=== PATIENT | female | born 1980 ===

== ENCOUNTER 2017-06-09 07:10 | Emergency (ER) | payer OTHER ==
[2017-06-09 07:18] VITALS: BMI 41.9
[2017-06-09 07:21] VITALS: BP 91/60; PULSE 68; RESP 16; TEMP 97.6; O2SAT 98
--- NOTE | 2017-06-09 09:10 | CT ---
PROCEDURE: CT Chest without contrast HISTORY: fall, L chest trauma, SOB COMPARISON: None. TECHNIQUE: Contiguous axial images were obtained through the chest without intravenous contrast enhancement. Sagittal and coronal reconstructions were performed. Radiation dose (DLP): 619.8 mGy-cm. This CT exam was performed using one or more of the following dose reduction techniques: Automated exposure control, adjustment of the mA and/or kV according to patient size, and/or use of iterative reconstruction technique. FINDINGS: LUNGS: Clear lungs. Visualized airway clear. MEDIASTINUM: Unremarkable thoracic aorta. No aneurysm. Normal sized heart. Main pulmonary artery unremarkable. No vascular congestion. Soft tissue density in the anterior mediastinum likely representing residual thymic tissue. No lymphadenopathy. PLEURA: No pleural fluid. No pneumothorax. BONES: Nondisplaced fracture of the left anterior 6th rib. No destructive lesion. UPPER ABDOMEN: Grossly unremarkable. OTHER FINDINGS: None. IMPRESSION: Nondisplaced fracture of the left anterior 6th rib. No pneumothorax/hemothorax or evidence of pulmonary contusion or laceration. Findings conveyed to Dr. Warner by Dr. Ruggiero at 9:05 a.m. on 06/09/2017.
--- NOTE | 2017-06-09 09:15 | ED PDOC ---
HPI: Trauma/Fall - HPI Time Seen by Provider: 06/09/17 07:29 Chief Complaint (Nursing): Rib Injury Chief Complaint (Provider): Rib Injury History Per: Patient History/Exam Limitations: no limitations Onset/Duration Of Symptoms: Days (x14) Injury Occurred (Timing): Days Ago: (14) Additional Complaint(s): Clark Diego is a 37 year old female with no past medical history, who presents to the ED with complains of persistent left lower rib pain, worse when taking deep breaths, onset 2 weeks ago s/p fall in bathroom while cleaning her shower. She denies any abdominal pain, hemoptysis, syncope, or dizziness. Patient offers no other medical complaints at this time. PMD: none provided - Fall Fall:Prior To Injury: Slipped (while cleaning shower). denies: Passed Out, [place] Lightheaded Past Medical History Reviewed: Historical Data, Nursing Documentation, Vital Signs Vital Signs: Last Vital Signs Temp 97.6 F 06/09/17 07:18 Pulse 68 06/09/17 07:18 Resp 16 06/09/17 07:18 BP 91/60 L 06/09/17 07:18 Pulse Ox 98 06/09/17 09:21 - Medical History PMH: Migraine - Surgical History Surgical History: No Surg Hx - Family History Family History: States: Unknown Family Hx - Immunization History Hx Tetanus Toxoid Vaccination: No Hx Influenza Vaccination: No Hx Pneumococcal Vaccination: No - Home Medications Home Medications: Ambulatory Orders Medication Instructions Recorded Acetaminophen/Codeine 2 tab PO Q6H #20 tab 04/18/15 [Tylenol/Codeine 300 MG/30 MG] Cyclobenzaprine [Cyclobenzaprine 10 mg PO TID #21 tab 04/18/15 HCl] Ibuprofen [Motrin] 800 mg PO Q6 04/18/15 Ibuprofen [Motrin] 600 mg PO TID 7 Days tab 01/07/17 Naproxen [Naprosyn] 500 mg PO BID PRN #14 tablet 06/09/17 traMADol [Ultram] 50 mg PO TID PRN #12 tab 06/09/17 - Allergies Allergies/Adverse Reactions: Allergies Allergy/AdvReac Type Severity Reaction Status Date / Time No Known Allergies Allergy Verified 06/09/17 07:35 Review of Systems ROS Statement: Except As Marked, All Systems Reviewed And Found Negative ENT: Negative for: Other (hemoptysis) Cardiovascular: Positive for: Other (left lower rib pain) Respiratory: Positive for: Other (pain with deep breaths) Gastrointestinal: Negative for: Abdominal Pain Neurological: Negative for: Dizziness, Other (syncope) Physical Exam - Reviewed Nursing Documentation Reviewed: Yes Vital Signs Reviewed: Yes - Physical Exam Appears: Positive for: Well, Non-toxic, No Acute Distress Head Exam: Positive for: ATRAUMATIC, NORMAL INSPECTION, NORMOCEPHALIC Skin: Positive for: Normal Color, Warm, Dry Eye Exam: Positive for: EOMI, Normal appearance, PERRL ENT: Positive for: Normal ENT Inspection Neck: Positive for: Normal, Painless ROM, Supple Cardiovascular/Chest: Positive for: Regular Rate, Rhythm. Negative for: Chest Non Tender (tenderness to the left lower constal margin, anteriorly), Murmur Respiratory: Positive for: Normal Breath Sounds. Negative for: Respiratory Distress Gastrointestinal/Abdominal: Positive for: Normal Exam, Soft. Negative for: Tenderness Back: Positive for: Normal Inspection. Negative for: L CVA Tenderness, R CVA Tenderness, Vertebral Tenderness Extremity: Positive for: Normal ROM. Negative for: Pedal Edema, Deformity, Swelling Neurologic/Psych: Positive for: Alert, Oriented. Negative for: Motor/Sensory Deficits - ECG O2 Sat by Pulse Oximetry: 98 (RA) Pulse Ox Interpretation: Normal Medical Decision Making Medical Decision Making: Time: 7:44 Plan: --CT Chest --Toradol [address] Chest ordered to rule out rib fracture. CT Chest: FINDINGS: LUNGS: Clear lungs. Visualized airway clear. MEDIASTINUM: Unremarkable thoracic aorta. No aneurysm. Normal sized heart. Main pulmonary artery unremarkable. No vascular congestion. Soft tissue density in the anterior mediastinum likely representing residual thymic tissue. No lymphadenopathy. PLEURA: No pleural fluid. No pneumothorax. BONES: Nondisplaced fracture of the left anterior 6th rib. No destructive lesion. UPPER ABDOMEN: Grossly unremarkable. OTHER FINDINGS: None. IMPRESSION: Nondisplaced fracture of the left anterior 6th rib. No pneumothorax/hemothorax or evidence of pulmonary contusion or laceration. discussed w patient in [place] via Heather camacho RN pain control, deep breaths and followup discussed avoid further trauma to area [id number] Scribe Attestation: Documented by Kacy Hoover, acting as a scribe for Josesito Warner DO Provider Scribe Attestation: All medical record entries made by the Scribe were at my direction and personally dictated by me. I have reviewed the chart and agree that the record accurately reflects my personal performance of the history, physical exam, medical decision making, and the department course for this patient. I have also personally directed, reviewed, and agree with the discharge instructions and disposition. Disposition - Clinical Impression Clinical Impression: Rib fracture - Patient ED Disposition Is Patient to be Admitted: No Counseled Patient/Family Regarding: Studies Performed, Diagnosis, Need For Followup, Rx Given - Disposition Referrals: Geraldo Suarez MD [Medical Doctor] - Disposition: Routine/Home Disposition Time: 09:30 Condition: STABLE Additional Instructions: Followup with chest surgeon as needed. Take pain medicine as needed and directed. Prescriptions: Naproxen [Naprosyn] 500 mg PO BID PRN #14 tablet PRN Reason: Pain, Moderate (4-7) traMADol [Ultram] 50 mg PO TID PRN #12 tab PRN Reason: Pain, Moderate (4-7) Instructions: Rib Fractures in Adults Forms: [facility] (Mongolian) Print Language: TURKISH
== END 2017-06-09 09:59 | disposition home or self-care (01) ==
LOC: H.ER 07:10
DX: S22.49XA Multiple fractures of ribs, unspecified side, initial encounter for closed fracture (principal); W01.0XXA Fall on same level from slipping, tripping and stumbling without subsequent striking against object, initial encounter; Y92.002 Bathroom of unspecified non-institutional (private) residence as the place of occurrence of the external cause
CPT/HCPCS: 71250; 81025; 96372; 99283; J1885

== ENCOUNTER 2017-12-31 08:34 | Emergency (ER) | payer OTHER ==
[2017-12-31 08:45] VITALS: BP 112/75; PULSE 61; RESP 18; TEMP 98; O2SAT 98; BMI 46.0
--- NOTE | 2017-12-31 09:00 | ED PDOC ---
HPI: Eye Injury/Pain Time Seen by Provider: 12/31/17 08:54 Chief Complaint (Nursing): Eye Problem Chief Complaint (Provider): Right eye upper lid swelling History Per: Patient History/Exam Limitations: no limitations Onset/Duration Of Symptoms: Days Current Symptoms Are (Timing): Still Present Associated Symptoms: denies: Decreased Vision, FB Sensation, Discharge From Eye Additional History Per: Patient Additional Complaint(s): 37yo female, comes to ER reporting right eye upper lid swelling and redness x 2 days. Patient denies any vision changes, drainage, fever or chills. No other complaints. Past Medical History Reviewed: Historical Data, Nursing Documentation, Vital Signs Vital Signs: Last Vital Signs Temp 98 F 12/31/17 08:45 Pulse 61 12/31/17 08:45 Resp 18 12/31/17 08:45 BP 112/75 12/31/17 08:45 Pulse Ox 98 12/31/17 08:45 - Medical History PMH: Migraine - Surgical History Surgical History: No Surg Hx - Family History Family History: States: Unknown Family Hx - Immunization History Hx Tetanus Toxoid Vaccination: No Hx Influenza Vaccination: No Hx Pneumococcal Vaccination: No - Home Medications Home Medications: Ambulatory Orders Medication Instructions Recorded Acetaminophen/Codeine 2 tab PO Q6H #20 tab 04/18/15 [Tylenol/Codeine 300 MG/30 MG] Cyclobenzaprine [Cyclobenzaprine 10 mg PO TID #21 tab 04/18/15 HCl] Ibuprofen [Motrin] 800 mg PO Q6 04/18/15 Ibuprofen [Motrin] 600 mg PO TID 7 Days tab 01/07/17 Naproxen [Naprosyn] 500 mg PO BID PRN #14 tablet 06/09/17 RX: traMADol [Ultram] 50 mg PO TID PRN #12 tab 06/09/17 Sulfamethoxazole/Trimethoprim 1 tab PO BID #20 tab 12/31/17 [Bactrim DS 800 mg-160 mg] Tobramycin 0.3% [Tobramycin 5 Ml] 1 drop OP TID #1 bottle 12/31/17 - Allergies Allergies/Adverse Reactions: Allergies Allergy/AdvReac Type Severity Reaction Status Date / Time No Known Allergies Allergy Verified 06/09/17 07:35 Review of Systems ROS Statement: Except As Marked, All Systems Reviewed And Found Negative Constitutional: Negative for: Fever, Chills Eyes: Positive for: Eyelid Inflammation, Redness. Negative for: Vision Change Physical Exam - Reviewed Nursing Documentation Reviewed: Yes Vital Signs Reviewed: Yes - Physical Exam Appears: Positive for: Non-toxic, No Acute Distress Head Exam: Positive for: ATRAUMATIC, NORMAL INSPECTION, NORMOCEPHALIC Skin: Positive for: Normal Color Eye Exam: Positive for: EOMI, PERRL, Conjunctival injection (mild; bi laterally.). Negative for: Periorbital swelling, Periorbital tenderness ENT: Positive for: Normal ENT Inspection Neck: Positive for: Supple Cardiovascular/Chest: Positive for: Regular Rate, Rhythm Respiratory: Positive for: Normal Breath Sounds - ECG O2 Sat by Pulse Oximetry: 98 (RA) Pulse Ox Interpretation: Normal Medical Decision Making Medical Decision Making: Impression: Eyelid inflammation Plan: * Patient to be discharged home with prescription for Bactrim. Informed to f/u with Dr. Shane. Scribe Attestation: Documented by Kristi Hunt, acting as a scribe for Lonnie Avendaño MD Provider Scribe Attestation: All medical record entries made by the Scribe were at my direction and personally dictated by me. I have reviewed the chart and agree that the record accurately reflects my personal performance of the history, physical exam, medical decision making, and the department course for this patient. I have also personally directed, reviewed, and agree with the discharge instructions and disposition. Disposition - Clinical Impression Clinical Impression: Michael - Patient ED Disposition Is Patient to be Admitted: No Counseled Patient/Family Regarding: Diagnosis, Need For Followup - Disposition Referrals: Kameron Shane MD [Staff Provider] - Disposition: Routine/Home Disposition Time: 09:27 Condition: STABLE Prescriptions: Sulfamethoxazole/Trimethoprim [Bactrim DS 800 mg-160 mg] 1 tab PO BID #20 tab Tobramycin 0.3% [Tobramycin 5 Ml] 1 drop OP TID #1 bottle Instructions: Michael (Idalmis) Forms: [facility] (Omani) Print Language: CITIZEN OF [place]
== END 2017-12-31 09:37 | disposition home or self-care (01) ==
LOC: H.ER 08:34
DX: H01.001 Unspecified blepharitis right upper eyelid (principal)

== ENCOUNTER 2018-02-28 08:24 | Emergency (ER) | payer OTHER ==
[2018-02-28 08:32] VITALS: RESP 18
[2018-02-28 08:33] VITALS: BMI 41.3
[2018-02-28] MEDS ORDERED: Sodium Chloride 0.9% 1,000 ML IV STA (08:49)
[2018-02-28 09:27] LABS: ALB/GLOB RATIO 1.1 (1.0-2.1); ALBUMIN 3.7 g/dL (3.5-5.0); BASO # 0.1 K/uL (0.0-0.2); BASO % 0.6 % (0.0-2.0); BLOOD UREA NITROGEN 8 mg/dl (7-17); CALCIUM 9.1 mg/dL (8.4-10.2); EOS # 0.5 K/uL (0.0-0.7); EOS % 5.8 % (0.0-4.0); GFR NON-AFRICAN AMERICAN > 60; HEMOGLOBIN 12.5 g/dL (12.0-16.0); LYMPH # 2.4 K/uL (1.0-4.3); LYMPH % 26.2 % (20.0-40.0); MEAN CELL VOLUME 88.5 fl (81.0-99.0); MEAN CORPUSCULAR HEMOGLOBIN 29.6 pg (27.0-31.0); MEAN CORPUSCULAR HGB CONC 33.5 g/dL (33.0-37.0); MEAN PLATELET VOLUME 9.2 fl (7.2-11.7); MONO # 0.8 K/uL (0.0-0.8); MONO % 8.3 % (0.0-10.0); NEUT # 5.4 K/uL (1.8-7.0); NEUT % 59.1 % (50.0-75.0); NRBC % 0.1 % (0.0-0.0); RBC 4.21 Mil/uL (3.80-5.20); RED CELL DISTRIBUTION WIDTH 14.9 % (11.5-14.5); WHITE BLOOD COUNT 9.1 K/uL (4.8-10.8)
[2018-02-28 09:41] LABS: ALT/SGPT 36 U/L (9-52); AST/SGOT 33 U/L (14-36)
--- NOTE | 2018-02-28 11:38 | ED PDOC ---
HPI:Nausea, Vomiting, Diarrhea Time Seen by Provider: 02/28/18 08:29 Chief Complaint (Nursing): Abdominal Pain Chief Complaint (Provider): Vomiting and Dizziness History Per: Patient History/Exam Limitations: no limitations Onset/Duration Of Symptoms: Days (x1) Current Symptoms Are (Timing): Still Present Additional Complaint(s): 38 y/o female with no significant PMHx presents to the ED for evaluation of non- bloody vomiting, onset one week ago. Patient states symptom is associated with minimal headache, "room-spinning" dizziness, abdominal pain, nausea, and mild we akness diffusely. Patient reports headache begins in the back of the head and radiates up to the front of the head. Patient states symptoms worsen with movement. Otherwise, patient denies leg pain, urinary symptoms, fever and chills. PMD: non H Provider Past Medical History Reviewed: Historical Data, Nursing Documentation, Vital Signs Vital Signs: Last Vital Signs Temp 97 F L 02/28/18 08:31 Pulse 68 02/28/18 08:31 Resp 18 02/28/18 08:31 BP 117/78 02/28/18 08:31 Pulse Ox 99 02/28/18 08:31 - Medical History PMH: Migraine - Surgical History Surgical History: No Surg Hx - Family History Family History: States: Unknown Family Hx - Immunization History Hx Tetanus Toxoid Vaccination: No Hx Influenza Vaccination: No Hx Pneumococcal Vaccination: No - Home Medications Home Medications: Ambulatory Orders Medication Instructions Recorded Acetaminophen/Codeine 2 tab PO Q6H #20 tab 04/18/15 [Tylenol/Codeine 300 MG/30 MG] Cyclobenzaprine [Cyclobenzaprine 10 mg PO TID #21 tab 04/18/15 HCl] Ibuprofen [Motrin] 800 mg PO Q6 04/18/15 Ibuprofen [Motrin] 600 mg PO TID 7 Days tab 01/07/17 Naproxen [Naprosyn] 500 mg PO BID PRN #14 tablet 06/09/17 traMADol [Ultram] 50 mg PO TID PRN #12 tab 06/09/17 Sulfamethoxazole/Trimethoprim 1 tab PO BID #20 tab 12/31/17 [Bactrim DS 800 mg-160 mg] Tobramycin 0.3% [Tobramycin 5 Ml] 1 drop OP TID #1 bottle 10/04/18 Meclizine [Meclizine*] 25 mg PO Q12 PRN #10 tab 02/28/18 Nitrofurantoin Macrocrystals 100 mg PO BID #10 cap 02/28/18 [Macrobid] - Allergies Allergies/Adverse Reactions: Allergies Allergy/AdvReac Type Severity Reaction Status Date / Time No Known Allergies Allergy Verified 06/09/17 07:35 Review of Systems ROS Statement: Except As Marked, All Systems Reviewed And Found Negative Constitutional: Positive for: Weakness (mild weakness diffusely). Negative for: Fever, Chills Gastrointestinal: Positive for: Nausea, Vomiting, Abdominal Pain Genitourinary Female: Negative for: Dysuria, Frequency, Hematuria Musculoskeletal: Negative for: Leg Pain Neurological: Positive for: Headache, Dizziness Physical Exam - Reviewed Nursing Documentation Reviewed: Yes Vital Signs Reviewed: Yes - Physical Exam Appears: Positive for: No Acute Distress Head Exam: Positive for: ATRAUMATIC, NORMOCEPHALIC Skin: Positive for: Normal Color, Warm, Dry Eye Exam: Positive for: EOMI, PERRL, Nystagmus (horizontal nystagmus) Neck: Positive for: Normal, Painless ROM Cardiovascular/Chest: Positive for: Regular Rate, Rhythm. Negative for: Murmur Respiratory: Positive for: Normal Breath Sounds. Negative for: Respiratory Distress Gastrointestinal/Abdominal: Positive for: Normal Exam, Soft. Negative for: Tenderness Extremity: Positive for: Normal ROM. Negative for: Pedal Edema, Deformity Neurologic/Psych: Positive for: Alert, Oriented. Negative for: Motor/Sensory Deficits - Laboratory Results Result Diagrams: 02/28/18 09:00 02/28/18 09:00 Interpretation Of Abn Labs: elevated bhcg Urine POC: Positive Urine dip results: Positive for: Leukocyte Esterase - ECG ECG: Positive for: Interpreted By Me, Viewed By Me ECG Rhythm: Positive for: Sinus Bradycardia O2 Sat by Pulse Oximetry: 99 (RA) Pulse Ox Interpretation: Normal - CT Scan/US US Other Rad Studies (CT/US): Read By Radiologist Other Rad Interpretation: IUP - Progress ED Course And Treament: 1315: Stable. AAOx3. Pain free. Tolerated PO. Has no symptoms now. UTI, preg, Vertigo. Medical Decision Making Medical Decision Making: Time: 0849 Plan: -- EKG -- CMP -- Troponin I -- ED Urine -- CBC with Differentials -- Antivert 25 mg PO -- Sodium Chloride IV 1000 mls/hr Time: 921 Plan: -- US OB Transvaginal -- Beta-HCG, Qualitative Time: 1100 Plan: -- Type and Screen Scribe Attestation: Documented by Yvette Perez, acting as a scribe for Pravin Garcia MD. Provider Scribe Attestation: All medical record entries made by the Scribe were at my direction and personally dictated by me. I have reviewed the chart and agree that the record accurately reflects my personal performance of the history, physical exam, medical decision making, and the department course for this patient. I have also personally directed, reviewed, and agree with the discharge instructions and disposition. Disposition - Clinical Impression Clinical Impression: UTI (urinary tract infection), Vertigo, Early stage of - Patient ED Disposition Is Patient to be Admitted: No Counseled Patient/Family Regarding: Studies Performed, Diagnosis, Need For Followup, Rx Given - Disposition [facility] - 03[facility]01[facility]18 Disposition: Routine/Home Disposition Time: 13:18 Condition: STABLE Additional Instructions: Return if not better in 3 days. Prescriptions: Meclizine [Meclizine*] 25 mg PO Q12 PRN #10 tab PRN Reason: Dizziness Nitrofurantoin Macrocrystals [Macrobid] 100 mg PO BID #10 cap Instructions: Urinary Tract Infection, Adult (DC), Care, Vertigo (a Type of Dizziness) Print Language: NIGERIAN
--- NOTE | 2018-02-28 13:59 | US ---
Date of service: 02/28/2018 PROCEDURE: HISTORY: preg and pain COMPARISON: TECHNIQUE: FINDINGS: The uterus measures 10.8 x 5.5 x 5.9 centimeters. There is a gestational sac measuring 12 millimeters corresponding to 5 weeks and 3 day gestation. pole is present measuring 3 millimeters corresponding to 5 weeks and 6 days . There is a yolk sac present. The left ovary is not visualized. The right ovary has a cyst measuring 9 millimeters. There is no free fluid the pelvis. IMPRESSION: As above.
[2018-02-28 14:50] VITALS: BP 107/50; PULSE 55; TEMP 97.8; O2SAT 100
--- NOTE | 2018-02-28 22:13 | CARD ---
APPROVED REPORT Date of service: 02/28/2018 EKG Measurement Heart [id number] <Conclusion> Sinus bradycardia Otherwise normal ECG
== END 2018-02-28 15:05 | disposition home or self-care (01) ==
LOC: H.ER 08:24
DX: N39.0 Urinary tract infection, site not specified (principal); R42 Dizziness and giddiness; Z33.1 Pregnant state, incidental
CPT/HCPCS: 76817; 80053; 81025; 84484; 84702; 85025; 86850; 86900; 93005; 99284; J7030

== ENCOUNTER 2018-05-01 12:27 | Emergency (ER) | payer SELFPAY ==
[2018-05-01 12:28] VITALS: BMI 41.3
[2018-05-01 12:33] VITALS: BP 122/76; PULSE 64; RESP 16; TEMP 97.8; O2SAT 100
[2018-05-01 13:30] LABS: SQUAMOUS EPITHIAL 3 /hpf (0-5); URINE BACTERIA RARE (<OCC); URINE BILIRUBIN NEGATIVE (NEGATIVE); URINE BLOOD NEGATIVE (NEGATIVE); URINE CLARITY SLIGHTY-CLOUDY (Clear); URINE COLOR YELLOW (YELLOW); URINE GLUCOSE (UA) NEG (NEGATIVE); URINE LEUKOCYTE ESTERASE NEG Leu/uL (Negative); URINE PROTEIN NEGATIVE (NEGATIVE); URINE UROBILINOGEN 0.2-1.0 mg/dL (0.2-1.0)
--- NOTE | 2018-05-01 13:45 | ED PDOC ---
HPI: Skin/Bite Injury Time Seen by Provider: 05/01/18 12:44 Chief Complaint (Nursing): Abnormal Skin Integrity Chief Complaint (Provider): Abnormal Skin Integrity History Per: Patient History/Exam Limitations: no limitations Onset/Duration Of Symptoms: Days (3x) Current Symptoms Are (Timing): Still Present Quality Of Symptoms: Itching Severity: Moderate Additional Complaint(s): 38 year old 15 week female with no significant psat medical history presents to the ED for an evaluation of skin irritation that started 2x days ago. Patient reports that 2x days ago, she noticed a bump on the skin of her abdominal area, and later noticed a second bump on her abdominal area. Patient states that the bumps are itchy. Patient states that the bumps get bigger and smaller on their own with no medical intervention. Patient further reports having burning with urination ad some abdominal cramps at night only. P atient denies using new skin creams, eating new foods, having a rash on any other part of her body, a rash on her groin (contrary to triage note), drainage of bumps, fevers, chills, night sweats, using medications, having abdominal pain at this time, cramping, vaginal bleeding or discharge. PMD: None provided. Past Medical History Reviewed: Historical Data, Nursing Documentation, Vital Signs Vital Signs: Last Vital Signs Temp 97.8 F 05/01/18 12:30 Pulse 64 05/01/18 12:30 Resp 16 05/01/18 12:30 BP 122/76 05/01/18 12:30 Pulse Ox 100 05/01/18 12:30 SHILO Report Viewed: Yes - Medical History PMH: Migraine - Surgical History Surgical History: No Surg Hx - Family History Family History: States: No Known Family Hx - Social History Current smoker - smoking cessation education provided: No Alcohol: None Drugs: Denies - Immunization History Hx Tetanus Toxoid Vaccination: No Hx Influenza Vaccination: No Hx Pneumococcal Vaccination: No - Home Medications Home Medications: Ambulatory Orders Medication Instructions Recorded Acetaminophen/Codeine 2 tab PO Q6H #20 tab 04/18/15 [Tylenol/Codeine 300 MG/30 MG] Cyclobenzaprine [Cyclobenzaprine 10 mg PO TID #21 tab 04/18/15 HCl] Ibuprofen [Motrin] 800 mg PO Q6 04/18/15 Ibuprofen [Motrin] 600 mg PO TID #15 tab 01/15/16 RX: traMADol/Acetaminophen 1 tab PO TID PRN #20 tab 01/15/16 [Ultracet 37.5/325 mg] Naproxen [Naprosyn] 500 mg PO BID #20 tab 05/25/16 RX: traMADol [Ultram] 50 mg PO Q6 PRN #20 tab 05/25/16 Ibuprofen [Motrin] 600 mg PO TID 7 Days tab 01/07/17 Naproxen [Naprosyn] 500 mg PO BID PRN #14 tablet 06/09/17 RX: traMADol [Ultram] 50 mg PO TID PRN #12 tab 06/09/17 Sulfamethoxazole/Trimethoprim 1 tab PO BID #20 tab 12/31/17 [Bactrim DS 800 mg-160 mg] Tobramycin 0.3% [Tobramycin 5 Ml] 1 drop OP TID #1 bottle 12/31/17 Nitrofurantoin Macrocrystals 100 mg PO BID #10 cap 02/28/18 [Macrobid] RX: Meclizine [Meclizine*] 25 mg PO Q12 PRN #10 tab 02/28/18 RX: Hydrocortisone 1% Cream 30 applic TOP BID 7 Days #1 tube 05/01/18 [Cortizone 1% Cream] - Allergies Allergies/Adverse Reactions: Allergies Allergy/AdvReac Type Severity Reaction Status Date / Time No Known Allergies Allergy Verified 05/01/18 12:30 Review of Systems ROS Statement: Except As Marked, All Systems Reviewed And Found Negative Constitutional: Negative for: Fever, Chills, Sweats Gastrointestinal: Negative for: Abdominal Pain (cramps and abdominal pain at night. (-) pain or cramping at this time) Genitourinary Female: Positive for: Dysuria. Negative for: Vaginal Discharge, Vaginal Bleeding Skin: Positive for: Other (2 bumps on abdominal area. (+) itching. (-) drainage.) Physical Exam - Reviewed Nursing Documentation Reviewed: Yes Vital Signs Reviewed: Yes - Physical Exam Appears: Positive for: Well, Non-toxic, No Acute Distress Head Exam: Positive for: ATRAUMATIC, NORMOCEPHALIC Skin: Positive for: Normal Color, Warm, Dry Cardiovascular/Chest: Positive for: Regular Rate, Rhythm, Chest Non Tender Respiratory: Positive for: Normal Breath Sounds. Negative for: Respiratory Distress Gastrointestinal/Abdominal: Positive for: Soft, Other (skin: 1x pink papule noted to left part of abdomen, 1x pink papule noted to right part of abdomen. (- ) erythema, (-) vesicles, (-) drainage, (-) rash noted to other parts of skin). Negative for: Tenderness Neurologic/Psych: Positive for: Alert, Oriented (3x) - ECG O2 Sat by Pulse Oximetry: 100 (RA) Pulse Ox Interpretation: Normal Medical Decision Making Medical Decision Makin:44 Initial impression: 38 year old female with likely mild contact dermatitis Initial plan: * udip * urinalysis * urine culture 14:00 Udip shows trace leukocytes, no nitrates. Will wait for urinalysis results. Patient will be discharged home with an Rx for hydrocortisone cream to apply to papules. Patient is instructed to follow up with hearth feeder and advised to wear looser fitting clothes, as irritation is seen in area of elastic from pants. Scribe Attestation: Documented Anish Infante, acting as a scribe for Martina Muller PA-C. Provider Scribe Attestation: All medical record entries made by the Scribe were at my direction and personally dictated by me. I have reviewed the chart and agree that the record accurately reflects my personal performance of the history, physical exam, medical decision making, and the department course for this patient. I have also personally directed, reviewed, and agree with the discharge instructions and disposition. Disposition - Clinical Impression Clinical Impression: Contact dermatitis - Disposition [facility]] Disposition Time: 14:40 Condition: STABLE Additional Instructions: Avoid using tight fitting clothes on abdomen. F/u with your hearth feeder early this week if symptoms persist. We will call you with results of urine culture if +. Prescriptions: RX: Hydrocortisone 1% Cream [Cortizone 1% Cream] 30 applic TOP BID 7 Days #1 tube Instructions: Contact Dermatitis (DC) Forms: [facility] (English) Print Language: WOLOF
== END 2018-05-01 14:45 | disposition home or self-care (01) ==
LOC: H.ER 12:27
DX: L25.9 Unspecified contact dermatitis, unspecified cause (principal); Z3A.15 15 weeks gestation of pregnancy